=== PATIENT | male | born 1990 | race Caucasian/White ===

== ENCOUNTER → 2021-04-20 09:51 | Outpatient (CLI) | payer OTHER, MEDICAID, SELFPAY ==
--- NOTE | 2021-04-20 | DI.MRI.S_ITS ---
PROCEDURE: MR KNEE LT WO CON INDICATIONS: Pain in left knee TECHNIQUE: Noncontrast sagittal PD fast spin echo and T2 fast spin echo with fat saturation, sagittal 3-D FLASH with fat saturation; coronal T1 spin echo and PD fast spin echo with fat saturation, and axial PD fast spin echo with fat saturation through the knee. COMPARISON: None. FINDINGS: Menisci: Medial meniscus: Medial meniscal tear involving the body and posterior horn with abnormal signal extending to the undersurface as well as the periphery. There is slight partial extrusion. Adjacent subcentimeter multiple/multiloculated parameniscal cyst. Lateral meniscus: Intact. Cruciate ligaments: Anterior cruciate ligament: Intact. Posterior cruciate ligament: Intact. Medial structures: The medial collateral ligament: Mild thickened appearance of the MCL. There is adjacent multiloculated cyst presumably ganglion cyst measuring approximately 3.1 cm in the cephalocaudal dimension and approximately 1.6 x 0.9 cm on axial pulse sequences. Semimembranosus tendon: Intact. Visualized pes anserinus tendons: Intact. Bursal fluid: none. Lateral structures: The lateral collateral ligament intact. Biceps femoris tendon appears intact. Popliteus tendon grossly unremarkable. Iliotibial band appears intact. Anterior structures: Quadriceps tendon: Mild distal quadriceps tendinopathy Medial patellofemoral ligament: Above described degenerative cystic changes are also near the femoral attachment of the MPFL raising possibility of posttraumatic sequela Lateral patellofemoral ligament: Low-grade thickened appearance of the patellar attachment of the LPFL Patellar tendon: Mild tendinopathy. Anterior soft tissues: Prepatellar and superficial infrapatellar subcutaneous edema/fluid. Deep infrapatellar region: Normal. Bones and cartilage: Marrow: No focal marrow contusion or discrete low signal fracture line. Incidentally noted pedunculated exostosis seen at the medial tibial metaphysis measuring 1.4 x 1.1 cm. No evidence of thickened cartilaginous cap. Medial compartment: No focal chondral defect. Lateral compartment: Diffuse partial-thickness loss of the femoral cartilage. Mild surface fraying of the tibial cartilage. Patellofemoral compartment: Diffuse surface fraying of the patellar and femoral trochlear cartilage. Joint space: Effusion: No pathologic knee joint effusion. Popliteal fossa: No Pearson's cyst. Loose bodies: None. IMPRESSION: Medial meniscal tear with slight partial extrusion involving the body and posterior horn. Numerous adjacent sub 5 mm/multiloculated parameniscal cysts. Low-grade sprain of the patellar attachment of the lateral patellofemoral ligament. Mild distal quadriceps tendinopathy Prominent cystic changes seen in the region of the femoral attachment of the medial patellofemoral ligament. This could reflect posttraumatic sequela versus degenerative ganglion cyst formation. Please correlate to exam findings. Prominent pedunculated exostosis involving the medial tibial proximal metaphysis. Dictated by: Ander Guy M.D. on 04/20/2021 at 11:28 Approved by: Ander Guy M.D. on 04/20/2021 at 11:43
== END ==
PROVIDERS: Referring Provider Physician Assistant Surgical; Visit Provider Physician Assistant Surgical
DX: M25.562 Pain in left knee (principal); M17.12 Unilateral primary osteoarthritis, left knee; S83.242A Other tear of medial meniscus, current injury, left knee, initial encounter; S76.112A Strain of left quadriceps muscle, fascia and tendon, initial encounter; G89.29 Other chronic pain
CPT/HCPCS: 73721